=== PATIENT | male | born 1955 | race Caucasian/White ===

== ENCOUNTER 2019-04-07 09:25 | Emergency (ER) | payer BC ==
[2019-04-07 09:49] LABS: PTT,PARTIAL THROMBOPLSTIN TIME 29.6 SEC (21.0-31.3)
[2019-04-07] MEDS ORDERED: Albuterol/Ipratropium 3.0-0.5 MG/3 ML Neb Soln NEB ONE (09:53)
[2019-04-07 10:02] LABS: CHLORIDE,CL 104 mmol/L (98-107); SODIUM,NA 140 mmol/L (136-145)
--- NOTE | 2019-04-07 10:04 | EDM.PDOC ---
ED HPI GENERAL MEDICAL PROBLEM - General Chief Complaint: Cardiovascular Problem Stated Complaint: DIZZY, CP, DIAPHORESIS Time Seen by Provider: 04/07/19 09:35 Source of Information: Reports: Patient History Limitations: Reports: No Limitations - History of Present Illness INITIAL COMMENTS - FREE TEXT/NARRATIVE: Patient sent to ER from [facility] after presenting to their nurse's office complaining of not feeling well. Report from [facility] indicated that he complained of chest tightness/ lightheadedness. Chest discomfort improved when nurse placed patient on O2 via NC at 4L. EMS called. Given above history,hest pain protocol initiated upon arrival to ER. Additional history obtained. Patient poor with history/very vague. Ultimately patient noted that he has not felt well since yesterday morning. Changes include decreased appetite, intermittent sweats & dizziness/lightheadedness, chest tightness. Today developed mild cough that brought up thicker/brownish mucus. Has generalized body aches. He denies fever. No pain complaint. Denies HEENT changes such as runny nose/ST/ear pain/eye drainage/vision change . Resp + for chest tightness, but not pain. Points to substernal area for tightness sensation. Reports feeling SOB in general "for a long time" but has not discussed that with his physician. Non-smoker. Gets exposed to fumes at [facility] and also intermittent secondhand smoke. Denies CV changes/irregular heart beat. Does admit to the two days of intermittent lightheadedness as noted above. Negative stress test last year. No CAD history. GI: decreased appetite but no other changes such as nausea/emesis/bowel changes/ hematochezia. : negative for acute changes UTI sx/hematuria etc. MS: + for generalized body aches today. Neuro: negative for headache/focal numbness or weakness/other acute changes. - Related Data Allergies Allergy/AdvReac Type Severity Reaction Status Date / Time No Known Allergies Allergy Verified 04/07/19 09:36 Home Meds: Home Meds Aspirin [Halfprin] 81 mg PO DAILY 04/07/19 [History] Doxycycline [Vibramycin] 100 mg PO BID #14 cap 04/07/19 [Rx] Past Medical History HEENT History: Reports: Hard of Hearing Respiratory History: Reports: Other (See Below) (See chest CT report from .) Endocrine/Metabolic History: Reports: Obesity/BMI 30+ Social & Family History - Tobacco Use Smoking Status *Q: Never Smoker - Caffeine Use Caffeine Use: Reports: Coffee - Alcohol Use Alcohol Use History: Yes Days Per Week of Alcohol Use: 3 - Recreational Drug Use Recreational Drug Use: No Drug Use in Last 12 Months: No ED ROS GENERAL - Review of Systems Review Of Systems: Comprehensive ROS is negative, except as noted in HPI. ED EXAM, GENERAL - Physical Exam Exam: See Below Exam Limited By: No Limitations General Appearance: Alert, No Apparent Distress, Obese Eye Exam: Bilateral Eye: EOMI, PERRL Ears: Hearing Grossly Normal (one does have to repeat themselves frequently when asking questions, suspect some degree of hearing impairment present) Nose: No: Nasal Deformity, Nasal Swelling, Nasal Drainage Throat/Mouth: Normal Lips, Normal Voice, No Airway Compromise Head: Atraumatic, Normocephalic Neck: Supple, Non-Tender, Full Range of Motion Respiratory/Chest: No Respiratory Distress, Lungs Clear, No Accessory Muscle Use , Chest Non-Tender, Decreased Breath Sounds (throughout), Other (Poor respiratory effort/expansion when asking patient to take deep breath) Cardiovascular: Normal Peripheral Pulses, Regular Rate, Rhythm, No Edema, No Murmur GI/Abdominal: Normal Bowel Sounds, Soft, Non-Tender, No Distention (Male) Exam: Deferred Rectal (Males) Exam: Deferred Back Exam: No: CVA Tenderness (L), CVA Tenderness (R), Muscle Spasm, Paraspinal Tenderness, Vertebral Tenderness Extremities: Non-Tender, Normal Capillary Refill Neurological: Alert, Oriented, Normal Cognition, Normal Gait, No Motor/Sensory Deficits Psychiatric: Normal Affect, Normal Mood Skin Exam: Warm, Dry, Intact, Normal Color EKG INTERPRETATION EKG Date: 04/07/19 Time: 09:31 Rhythm: Other (Sinus. Occ premature supraventricular complex) Rate (Beats/Min): 79 [place]woope: Normal P-Wave: Present QRS: Normal ST-T: Normal QT: Normal Comparison: NA - No Prior EKG Course - Orders/Labs/Meds Orders: Active Orders 24 hr Category Date Time Status EKG Documentation Completion [RC] ASDIRECTED Care 04/07/19 09:35 Active RT Aerosol Therapy [RC] ASDIRECTED Care 04/07/19 09:53 Ordered Chest 1V Frontal [CR] Stat Exams 04/07/19 09:35 Taken Chest 2V [CR] Urgent Exams 04/07/19 10:08 Ordered Chest w Cont [CT] Stat Exams 04/07/19 10:25 Ordered Labs: Laboratory Tests 04/07/19 04/07/19 04/07/19 Range/Units 09:32 09:35 09:35 WBC 4.7 (4.0-10.2) K/uL RBC 4.93 (4.33-5.41) M/uL Hgb 14.8 (13.1-16.8) g/dL Hct 45.4 (39.0-49.0) % MCV 92.1 (84.0-98.0) fL MCH 30.0 (28.2-33.3) pg MCHC 32.6 (31.7-36.0) g/dL RDW 14.4 H (11.2-14.1) % Plt Count 132 L (150-350) K/uL Neut % (Auto) 63.3 (45.0-80.0) % Lymph % (Auto) 18.7 (10.0-50.0) % Brule % (Auto) 15.3 H (2.0-14.0) % Eos % (Auto) 2.1 (0.0-5.0) % Baso % (Auto) 0.6 (0.0-2.0) % Neut # (Auto) 2.97 (1.40-7.00) K/uL Lymph # (Auto) 0.88 (0.50-3.50) K/uL Brule # (Auto) 0.72 (0.00-1.00) K/uL Eos # (Auto) 0.10 (0.00-0.50) K/uL Baso # (Auto) 0.03 (0.00-0.20) K/uL PT 11.8 (9.5-12.0) SEC INR 1.1 APTT 29.6 (21.0-31.3) SEC D-Dimer, Quantitative 200 (0-400) ng/mL Sodium (136-145) mmol/L Potassium (3.5-5.1) mmol/L Chloride (98-107) mmol/L Carbon Dioxide (21.0-32.0) mmol/L BUN (7-18) mg/dL Creatinine (0.51-1.17) mg/dL Est Cr Clr Drug Dosing Estimated GFR (MDRD) mL/min Glucose (74-106) mg/dL Lactic Acid (0.4-2.0) mmol/L Calcium (8.5-10.1) mg/dL Magnesium (1.8-2.4) mg/dL Total Bilirubin (0.2-1.0) mg/dL AST (15-37) U/L ALT (12-78) U/L Alkaline Phosphatase (46-116) IU/L Creatine Kinase (26-308) U/L Creatine Kinase Index (0.0-2.5) % CK-MB (CK-2) (0.00-3.60) ng/mL Troponin I (0.000-0.056) ng/mL NT-Pro-B Natriuret Pep (0-125) pg/mL Total Protein (6.4-8.2) g/dL Albumin (3.4-5.0) g/dL 04/07/19 04/07/19 Range/Units 09:35 09:35 WBC (4.0-10.2) K/uL RBC (4.33-5.41) M/uL Hgb (13.1-16.8) g/dL Hct (39.0-49.0) % MCV (84.0-98.0) fL MCH (28.2-33.3) pg MCHC (31.7-36.0) g/dL RDW (11.2-14.1) % Plt Count (150-350) K/uL Neut % (Auto) (45.0-80.0) % Lymph % (Auto) (10.0-50.0) % Brule % (Auto) (2.0-14.0) % Eos % (Auto) (0.0-5.0) % Baso % (Auto) (0.0-2.0) % Neut # (Auto) (1.40-7.00) K/uL Lymph # (Auto) (0.50-3.50) K/uL Brule # (Auto) (0.00-1.00) K/uL Eos # (Auto) (0.00-0.50) K/uL Baso # (Auto) (0.00-0.20) K/uL PT (9.5-12.0) SEC INR APTT (21.0-31.3) SEC D-Dimer, Quantitative (0-400) ng/mL Sodium 140 (136-145) mmol/L Potassium 4.4 (3.5-5.1) mmol/L Chloride 104 (98-107) mmol/L Carbon Dioxide 26.7 (21.0-32.0) mmol/L BUN 18 (7-18) mg/dL Creatinine 0.88 (0.51-1.17) mg/dL Est Cr Clr Drug Dosing TNP Estimated GFR (MDRD) > 60 mL/min Glucose 106 (74-106) mg/dL Lactic Acid 1.0 (0.4-2.0) mmol/L Calcium 8.8 (8.5-10.1) mg/dL Magnesium 1.9 (1.8-2.4) mg/dL Total Bilirubin 1.2 H (0.2-1.0) mg/dL AST 87 H (15-37) U/L ALT 53 (12-78) U/L Alkaline Phosphatase 125 H (46-116) IU/L Creatine Kinase 51 (26-308) U/L Creatine Kinase Index 1.6 (0.0-2.5) % CK-MB (CK-2) 0.80 (0.00-3.60) ng/mL Troponin I 0.000 (0.000-0.056) ng/mL NT-Pro-B Natriuret Pep 27 (0-125) pg/mL Total Protein 8.3 H (6.4-8.2) g/dL Albumin 3.4 (3.4-5.0) g/dL Meds: Medications Discontinued Medications Generic Name Dose Route Start Last Admin Trade Name Freq PRN Reason Stop Dose Admin Albuterol/Ipratropium 3 ml 04/07/19 09:53 04/07/19 09:59 Duoneb 3.0-0.5 Mg/3 Ml NEB 04/07/19 09:54 3 ml ONETIME ONE Administration Sodium Chloride 1,000 mls @ 999 mls/hr 04/07/19 11:16 04/07/19 11:21 Normal Saline IV 04/07/19 12:16 999 mls/hr .BOLUS ONE Administration Iopamidol 100 ml 01/27/20 10:37 04/07/19 11:37 Isovue-300 (61%) IVPUSH 04/07/19 10:38 100 ml ONETIME ONE Administration Methylprednisolone Sodium Succinate 125 mg 04/07/19 11:12 04/07/19 11:21 Solu-Medrol IVPUSH 04/07/19 11:13 125 mg ONETIME ONE Administration - Radiology Interpretation Free Text/Narrative:: Chest xray performed. Lateral view showed questionable infiltrate on lateral view posteriorly. CT Results Date: 04/07/19 CT Results Time: 12:19 (See printout. Noted to have fibrosis/interstitial pneumonitis/pulm nodules/lymphadenopathy) - Re-Assessments/Exams Free Text/Narrative Re-Assessment/Exam: Given patient's complaint of diaphoresis/chest tightness and discomfort/ dizziness, and improvement on O2---chest pain protocol initiated in ER. He received ASA at [facility]. Further questioning found that pt had not felt well for 2 days, and noted decreased appetite, along with today having a mild cough with brownish sputum. This led to suspicion for acute respiratory infection. Influenza negative. Labs overall unremarkable, including Troponin/DDimer/ ProBNP. AST somewhat elevated. Noted to have poor overall air movement on physical exam of lungs. Patient admitted to feeling gradual worsening SOB over the last few years and now feels chronically SOB. It was ultimately decided to obtain a chest CT given this history along with O2 sats around 94% on room air/ feeling improved on O2. CT per Radiology showed mediastinal lymphadenopathy/retroperitoneal adenopathy, pulmonary nodules, interstitial changes, and some focal changes suggestive of viral changes vs atypical pneumonia. Thus there is some concern for potential cancerous process, vs reactive changes to some other stimulus. New CT recommended in 3 months for comparison. Given the above, it was recommended to the patient to stay overnight for observation. He did receive a neb treatment and Solumedrol in the ER, and felt better with the NC O2. No real change after the DuoNeb per patient. He was informed that Observation would be helpful to observe for any respiratory improvement in regards to his complaint of chest tightness and SOB. O2 would be able to be continued PRN. Serial troponins could also be performed to more fully rule out cardiac contribution. Telemetry to observe for arrhythmia would be helpful as that can also contribute to episodes of chest discomfort/SOB/ dizziness/diaphoresis. This was recommended to patient and results of CT/labs discussed with him. He did admit that he felt better on the NC O2, but refused admission, saying that he would prefer to go home. Doxy 100 BID will be started to cover for atypical pneumonia. He was given a work slip for today and tomorrow. He is to make an appointment to follow up soon with his primary provider in [place] to review the CT report/ recommendations and get scheduled for pulmonary function testing and referral to pulmonary medicine if needed. He will also need to have a repeat CT scheduled in 3 months. Precautions reviewed prior to discharge. To return for recheck if feeling worse. Departure - Departure Time of Disposition: 13:13 Disposition: Home, Self-Care 01 Condition: Good Clinical Impression: Respiratory tract infection, Chronic dyspnea, Mediastinal lymphadenopathy, Pulmonary nodules, Interstitial pneumonitis Sepsis Event Note - Focused Exam Date Exam was Performed: 04/07/19 Time Exam was Performed: 13:41 - My Orders Last 24 Hours: My Active Orders 04/07/19 09:35 EKG Documentation Completion [RC] ASDIRECTED Chest 1V Frontal [CR] Stat 04/07/19 09:53 RT Aerosol Therapy [RC] ASDIRECTED 04/07/19 10:08 Chest 2V [CR] Urgent 04/07/19 10:25 Chest w Cont [CT] Stat - Assessment/Plan Last 24 Hours: My Active Orders 04/07/19 09:35 EKG Documentation Completion [RC] ASDIRECTED Chest 1V Frontal [CR] Stat 04/07/19 09:53 RT Aerosol Therapy [RC] ASDIRECTED 04/07/19 10:08 Chest 2V [CR] Urgent 04/07/19 10:25 Chest w Cont [CT] Stat
[2019-04-07] MEDS ORDERED: Iopamidol 612 MG/ML 100 ML Bottle IVPUSH ONE (10:37)
[2019-04-07] MEDS ORDERED: methylPREDNISolone Sodium Succinate 125 MG/2 ML SDV IVPUSH ONE (11:12)
[2019-04-07] MEDS ORDERED: Sodium Chloride 0.9% 1,000 ML IV ONE (11:16)
== END 2019-04-07 14:25 | disposition left against medical advice (07) ==
LOC: SUPCPDRO 09:25 → LL.ED 09:25 → LL.MS 12:52 → UNDOADMOB 12:52
DX: J84.89 Other specified interstitial pulmonary diseases (principal); J98.8 Other specified respiratory disorders; R59.0 Localized enlarged lymph nodes; R91.8 Other nonspecific abnormal finding of lung field; Z79.82 Long term (current) use of aspirin
CPT/HCPCS: 36415; 71045; 71046; 71260; 80053; 82550; 82553; 83605; 83735; 83880; 84484; 85025; 85379; 85610; 85730; 87804; 93005; 94640; 96361; 96374; 99285; J2930; J7030; Q9967; J7620-GY